=== PATIENT | male | born 1990 | race African-American/Black ===

== ENCOUNTER 2020-05-14 14:35 | Emergency (ER) | payer SELFPAY ==
[~2020-05-14] VITALS: Ht 180.3 cm; Wt 70.0 kg
[2020-05-14 15:07] LABS: BASO % 1 % (0-3); EOS # 0.1 x10^3/uL (0.0-0.7); EOS % 3 % (0-3); HEMATOCRIT 40.5 % (39.0-53.0); HEMOGLOBIN 13.8 g/dL (13.0-17.5); LYMPH # 1.6 x10^3/uL (1.0-4.8); LYMPH % 38 % (24-48); MEAN CORPUSCULAR HEMOGLOBIN 31 pg (25-35); MEAN CORPUSCULAR HGB CONC 34 g/dL (31-37); MEAN CORPUSCULAR VOLUME 91 fL (79-100); MONO # 0.5 x10^3/uL (0.0-1.1); MONO % 11 % (0-9); NEUT % 47 % (31-73); PLATELET COUNT 256 x10^3/uL (140-400); RED BLOOD COUNT 4.45 x10^6/uL (4.30-5.70); RED CELL DISTRIBUTION WIDTH 13.7 % (11.5-14.5); WHITE BLOOD COUNT 4.2 x10^3/uL (4.0-11.0)
--- NOTE | 2020-05-14 15:07 | PHYS DOC ---
Past Medical History Past Medical History: No Pertinent History Past Surgical History: No Surgical History Smoking Status: Current Every Day Smoker Alcohol Use: Rarely General Adult EDM: Chief Complaint: MULTIPLE COMPLAINTS HPI: HPI: Patient is a 29 year old male who presents with was exposed to cover on May 01 and got tested and was negative. He states just about 4 days ago he was exposed again. He states 2 days ago he began having fever, cough, lack of appetite. He states his temperature this morning was 102. He states he took Tylenol. He is currently afebrile in the ED. He states that he has some chest pain only with cough not with breathing. Patient denies shortness of breath, nausea, vomiting, diarrhea, numbness or tingling, headache, dizziness, syncope, focal weakness. States he has a lack of appetite. He denies any past medical history. He states he is a smoker. He takes no medications daily. Denies any pain at this time. Review of Systems: Review of Systems: Constitutional: +fever or chills. [] Eyes: Denies change in visual acuity. [] HENT: Denies nasal congestion. +sore throat. [] Respiratory: + cough or denies shortness of breath. [] Cardiovascular: +coughing chest pain or denies edema. [] GI: + Lack of appetite, Denies abdominal pain, nausea, vomiting, bloody stools or diarrhea. [] : Denies dysuria. [] Musculoskeletal: Denies back pain or joint pain. [] Integument: Denies rash. [] Neurologic: Denies headache, focal weakness or sensory changes. [] Endocrine: Denies polyuria or polydipsia. [] Lymphatic: Denies swollen glands. [] Psychiatric: Denies depression or anxiety. [] Heart Score: Risk Factors: Risk Factors: DM, Current or recent (<one month) smoker, HTN, HLP, family history of CAD, obesity. Risk Scores: Score 0 - 3: 2.5% MACE over next 6 weeks - Discharge Home Score 4 - 6: 20.3% MACE over next 6 weeks - Admit for Clinical Observation Score 7 - 10: 72.7% MACE over next 6 weeks - Early Invasive Strategies Allergies: Allergies: Allergies Coded Allergies Type Severity Reaction Last Updated Verified No Known Drug Allergies 05/14/20 No Physical Exam: PE: Constitutional: Well developed, well nourished, no acute distress, non-toxic appearance. [] HENT: Normocephalic, atraumatic, bilateral external ears normal, oropharynx moist, no oral exudates, nose normal. [] Eyes: PERRLA, EOMI, conjunctiva normal, no discharge. [] Neck: Normal range of motion, no tenderness, supple, no stridor. [] Cardiovascular:Heart rate regular rhythm, no murmur [] Lungs & Thorax: Bilateral breath sounds clear to auscultation [] Abdomen: Bowel sounds normal, soft, no tenderness, no masses, no pulsatile masses. [] Skin: Warm, dry, no erythema, no rash. [] Back: No tenderness, no CVA tenderness. [] Extremities: No tenderness, no cyanosis, no clubbing, ROM intact, no edema. [] Neurologic: Alert and oriented X 3, normal motor function, normal sensory function, no focal deficits noted. [] Psychologic: Affect normal, judgement normal, mood normal. [] Normal Physical Exam Current Patient Data: Vital Signs: Vital Signs Date Time Temp Pulse Resp B/P (MAP) Pulse Ox O2 Delivery O2 Flow Rate FiO2 05/14/20 14:45 98.3 69 18 134/85 (101) 100 Room Air 98.3 EKG: EKG: [] Radiology/Procedures: Radiology/Procedures: [] Impression: [facility] [address] [place] [address] IMAGING REPORT Signed PATIENT: NIDHI EARLY ACCOUNT: [id number] : 1990 LOCATION: ER AGE: 29 SEX: M EXAM STATUS: PRE ER ORD. PHYSICIAN: KENNEY CARTER APRN REASON: cough, covid exposure PROCEDURE: PORTABLE CHEST 1V Exam performed: One view chest. Indication: Reason: cough, covid exposure / Spl. Instructions: / History: Date of Service: 05/14/2020 2:48 PM Comparison: None available. Single AP upright portable view chest findings: Cardiomediastinal silhouette is within limits of normal. No acute infiltrates, effusion or pneumothorax is detected. The bony structures are normal. Impression: No acute cardiopulmonary process is detected. Electronically signed by: Rosetta France MD (05/14/2020 3:19 PM) [facility] DICTATED and SIGNED BY: ROSETTA FRANCE MD DATE: 05/14/20 1519 Course & Med Decision Making: Course & Med Decision Making Pertinent Labs and Imaging studies reviewed. (See chart for details) COVID-19 CRITERIA: The patient was evaluated during the global COVID-19 pandemic, and that diagnosis was suspected/considered upon their initial presentation. Their evaluation, treatment and testing was consistent with current guidelines for patients who present with complaints or symptoms that may be related to COVID-19. See HPI. Alert and oriented x4. Ambulatory with a steady gait. Speaks in full clear sentences. Lungs are clear to auscultation all lobes. Vital signs within normal limits. Chest x-ray shows no acute findings. Patient is tested for COVID in the ED. Vital signs remained stable. Blood work is stable. Patient is discharged home. [] Dragon Disclaimer: Dragon Disclaimer: This electronic medical record was generated, in whole or in part, using a voice recognition dictation system. COVID-19 Patient Risks: Age 65 or older: No Sign of co-morbidity: No Exp to person + for COVID: No Exp to PUI: Yes Travel from affected area: No Lower respiratory symptoms: Yes Fever: Yes Other: No PPE Use: Full PPE with N95 mask or PAPR: Yes Departure Departure Impression: Primary Impression: Person under investigation for COVID-19 Additional Impressions: Cough Fever Qualified Codes: R50.84 - Febrile nonhemolytic transfusion reaction Disposition: 01 HOME, SELF-CARE Condition: STABLE Patient Instructions: Cough, Adult, Fever, Adult Additional Instructions: Quarantine for the next couple of weeks. Covid test to come back in the next 48 hours. Drink plenty of fluids. Take Tylenol or ibuprofen to help with your pain or fever. You have been tested for or diagnosed with COVID-19. It is an infection caused by a new type of coronavirus. COVID-19 will cause cold-like or mild flu symptoms in most. It can cause more severe symptoms like problems breathing in some. There is no treatment for COVID-19. The body will clear the infection over time. Self-care will help to ease discomfort. Steps to Take: Self-Care Rest as needed. Healthy habits may help you feel better. Steps include: Choose healthy foods including fruits and vegetables. Drink water throughout the day. Get plenty of sleep each night. If you smoke, try to quit. It may ease breathing. Avoid alcohol. Keep Others Healthy The virus can spread to others. Droplets are released every time you sneeze or cough. The droplets can get into the mouth, nose, or eyes of people near you and lead to infection. To lower the chances of spreading COVID-19 to others: Stay at home until your doctor has said it is safe to leave. If you tested positive this will mean staying isolated until both of the following are true: At least 7 days have passed since the start of illness. You are free of fever for at least 72 hours without the use of medicine. During this time: - Avoid public areas, events, or transportation. Do not return to work or school until your doctor has said it is safe to do so. - Call ahead if you need to go to a medical center. Let them know you may have COVID-19. It will help them guide you where to go. They may also ask you to wear a facemask when you come to the office. - If you call for emergency medical services, let them know you may have COVID- 19. While at home: - Try to avoid close contact with others. Stay about 6 feet away. - If possible, spend most of your time in a separate room from others. - Use a face mask if you will be in close contact with others such as sharing a room or vehicle. - Have someone wipe down common surfaces in the home. Use household political advisor every day on areas like doorknobs, counters, or sinks. - Cough or sneeze into a tissue. Throw the tissue away right after use. If a tissue is not available, cough or sneeze into your elbow. - Wash your hands often. Wash them after sneezing or coughing. Use soap and water and wash for at least 20 seconds. Alcohol based hand apron cleaner can be used if soap and water is not available. - Do not prepare food for others. Avoid sharing personal items like forks, spoons, or toothbrushes. - Avoid close contact with pets while you are sick. There is no evidence of the virus passing to pets. This is a safety step until more is known about this virus. Isolation can be frustrating. Social interaction can help. Keep in touch with friends and family through phone and tech options. You can still interact with others in your home, just keep a safe distance of about 6 feet. Follow-up: Your doctors office will check in with you to see if there are any changes in your health. You may be asked to keep track of symptoms to share with them. They will also let you know when you are clear to be in public again. Problems to Look Out For: Contact your doctor if your recovery is not going as you expect. Get emergency care if you have problems such as: - Trouble breathing - Nonstop chest pain or pressure - Changes in awareness, confusion, or problems waking - Lips or face have bluish color - Worsening of symptoms If you think you have an emergency, call for emergency medical services right away. As taken from [facility] Albuterol Sulfate (PROAIR HFA INHALER) 8.5 Gm Hfa.aer.ad 1 PUFF INH PRN Q6HRS PRN for SHORTNESS OF BREATH, #1 INHALER 0 Refills Prov: KENNEY CARTER APRN 05/14/20 Methylprednisolone (MEDROL) 4 Mg Tab.ds.pk 1 PKG PO UD, #1 PKG Prov: KENNEY CARTER APRN 05/14/20 Justicifation of Admission Dx: Justifications for Admission: Justification of Admission Dx: N/A KENNEY CARTER APRN May 14, 2020 15:07
[2020-05-14 15:15] LABS: CALCIUM 8.8 mg/dL (8.5-10.1); GFR 87.7; POTASSIUM 4.4 mmol/L (3.5-5.1)
[2020-05-14 15:21] LABS: ALBUMIN 3.7 g/dL (3.4-5.0); ALBUMIN/GLOBULIN RATIO 1.3 (1.0-1.7); TOTAL BILIRUBIN 0.3 mg/dL (0.2-1.0); TOTAL PROTEIN 6.6 g/dL (6.4-8.2)
--- NOTE | 2020-05-14 15:22 | RAD ---
Exam performed: One view chest. Indication: Reason: cough, covid exposure / Spl. Instructions: / History: Date of Service: 05/14/2020 2:48 PM Comparison: None available. Single AP upright portable view chest findings: Cardiomediastinal silhouette is within limits of normal. No acute infiltrates, effusion or pneumothorax is detected. The bony structures are normal. Impression: No acute cardiopulmonary process is detected. Electronically signed by: Rosetta France MD (05/14/2020 3:19 PM) [facility]
[2020-05-14] MEDS ORDERED: ALBU2.5V8 INH (15:37)
[2020-05-14] MEDS ORDERED: METH4TAB2 PO (15:37)
[2020-05-14 15:42] LABS: BILIRUBIN,URINE NEGATIVE (NEG); CLARITY,URINE CLEAR; COLOR,URINE YELLOW; NITRITE,URINE NEGATIVE (NEG); PH,URINE 6.5 (<5.0-8.0); PROTEIN,URINE NEGATIVE (NEG-TRACE)
[2020-05-14 15:51] LABS: BACTERIA,URINE 0 /HPF (0-FEW); RBC,URINE 0 /HPF (0-2); SQUAMOUS EPITHELIAL CELL,UR FEW /LPF
[2020-05-14 16:22] VITALS: BP 118/79
--- NOTE | 2020-05-16 15:45 | NUR ---
IP: Informed pt of negative COVID test. Pt verbalized understanding.
== END 2020-05-14 16:44 | disposition home or self-care (01) ==
LOC: ER 14:35
DX: R50.9 Fever, unspecified (principal); Z20.828 Contact with and (suspected) exposure to other viral communicable diseases; R05 Cough; R50.84 Febrile nonhemolytic transfusion reaction; R63.0 Anorexia; F17.200 Nicotine dependence, unspecified, uncomplicated
CPT/HCPCS: 36415; 71045; 80053; 81001; 85025; 87086; 99284; U0003

== ENCOUNTER 2020-06-27 14:01 | Emergency (ER) | payer SELFPAY ==
[~2020-06-27] VITALS: Ht 180.3 cm; Wt 67.3 kg
[~2020-06-27 14:01] MED LIST: ALBU2.5V8 INH; METH4TAB2 PO
[2020-06-27 15:15] VITALS: BP 119/79
[2020-06-27] MEDS ORDERED: NAPROXEN 500 MG TABLET PO STA (15:45)
--- NOTE | 2020-06-27 15:55 | RAD ---
ANKLE LEFT 3V 06/27/2020 2:02 PM INDICATION: Left ankle pain for 3 days COMPARISON: None available. TECHNIQUE: 3 views the left ankle are provided. FINDINGS/ IMPRESSION: There is no acute fracture or dislocation. Joint spaces are maintained. Bone mineralization is within normal limits. Regional soft tissues are within normal limits. There is no soft tissue gas or osseous erosion. No radiopaque foreign body. Electronically signed by: Elba Sahu MD (06/27/2020 3:52 PM) [id number]
[2020-06-27] MEDS ORDERED: HYDROcodone/APAP 5/325MG 1 TAB TABLET PO ONE (16:00)
[2020-06-27] MEDS ORDERED: predniSONE 10 MG TABLET PO ONE (16:00)
--- NOTE | 2020-06-27 17:13 | PHYS DOC ---
Past Medical History Past Medical History: No Pertinent History (CYNTHIA PIERCE APRN) Past Surgical History: No Surgical History (CYNTHIA PIERCE APRN) Smoking Status: Current Some Day Smoker Alcohol Use: None (CYNTHIA PIERCE APRN) General Adult EDM: Chief Complaint: ANKLE PROBLEM HPI: HPI: Patient is a 30 year old male patient presented to the ED today with 10 out of 10 left ankle pain specifically at his Achilles tendon that began 3 days ago. Patient denies any known injury. States the pain is worse on range of motion. Describes the pain as a burning sensation., Denies anything specifically relieving the pain. (CYNTHIA PIERCE APRN) Review of Systems: Review of Systems: Constitutional: Denies fever or chills. [] Musculoskeletal: Reports left ankle pain Integument: Denies rash. [] Neurologic: Denies headache, focal weakness or sensory changes. [] Psychiatric: Denies depression or anxiety. [] (CYNTHIA PIERCE APRN) Heart Score: Risk Factors: Risk Factors: DM, Current or recent (<one month) smoker, HTN, HLP, family history of CAD, obesity. Risk Scores: Score 0 - 3: 2.5% MACE over next 6 weeks - Discharge Home Score 4 - 6: 20.3% MACE over next 6 weeks - Admit for Clinical Observation Score 7 - 10: 72.7% MACE over next 6 weeks - Early Invasive Strategies (CYNTHIA PIERCE APRN) Current Medications: Current Medications Medications (Trade) Dose Ordered Sig/Cory Start Time Stop Time Status Last Admin Dose Admin Acetaminophen/ Hydrocodone Bitart (Lortab 5/325) 1 tab 1X ONCE 06/27/20 16:00 06/27/20 16:01 DC 06/27/20 16:01 1 TAB Naproxen (Naprosyn) 500 mg 1X STAT 06/27/20 15:45 06/27/20 15:49 DC 06/27/20 16:01 500 MG Prednisone (Prednisone) 50 mg 1X ONCE 06/27/20 16:00 06/27/20 16:01 DC 06/27/20 16:01 50 MG (CYNTHIA PIERCE APRN) Allergies: Allergies: Allergies Coded Allergies Type Severity Reaction Last Updated Verified No Known Drug Allergies 05/14/20 No (CYNTHIA PIERCE APRN) Physical Exam: PE: Constitutional: Well developed, well nourished, no acute distress, non-toxic appearance. [] Skin: Warm, dry, no erythema, no rash. [] Back: No tenderness, no CVA tenderness. [] Extremities: Left ankle with no obvious deformity. No redness on the Achilles tendon. Tenderness on palpation of the Achilles tendon on the left leg. Full range of motion to the left lower extremity specifically left ankle including flexion and extension. Negative Serrano sign. +2 left pedal pulse. Cap refill less than 2 seconds to left toes. Neurologic: Alert and oriented X 3, normal motor function, normal sensory function, no focal deficits noted. [] Psychologic: Affect normal, judgement normal, mood normal. [] (CYNTHIA PIERCE APRN) Current Patient Data: Vital Signs: Vital Signs Date Time Temp Pulse Resp B/P (MAP) Pulse Ox O2 Delivery O2 Flow Rate FiO2 06/27/20 15:15 98.0 65 14 119/79 (92) 100 Room Air 98.0 (CYNTHIA PIERCE APRN) EKG: EKG: [] (CYNTHIA PIERCE APRN) Radiology/Procedures: Radiology/Procedures: []PROCEDURE: ANKLE LEFT 3V ANKLE LEFT 3V 06/27/2020 2:02 PM INDICATION: Left ankle pain for 3 days COMPARISON: None available. TECHNIQUE: 3 views the left ankle are provided. FINDINGS/ IMPRESSION: There is no acute fracture or dislocation. Joint spaces are maintained. Bone mineralization is within normal limits. Regional soft tissues are within normal limits. There is no soft tissue gas or osseous erosion. No radiopaque foreign body. Electronically signed by: Christin Reyes MD (06/27/2020 3:52 PM) [id number] DICTATED and SIGNED BY: CHRISTIN REYES MD DATE: 06/27/20 1552 (CYNTHIA PIERCE APRN) Course & Med Decision Making: Course & Med Decision Making Pertinent Labs and Imaging studies reviewed. (See chart for details) This is a 30-year-old male patient presenting to the ED today complaining of left Achilles tendon pain for 3 days. Left ankle x-rays are negative for any acute findings. Patient was placed in a posterior leg splint and instructed to follow-up with an orthopedic doctor in a week, neurovascular exam done post splinting is normal. Ice elevation encouraged. Discharged with Medrol Dosepak and naproxen (CYNTHIA PIERCE APRN) Dragon Disclaimer: Dragon Disclaimer: This electronic medical record was generated, in whole or in part, using a voice recognition dictation system. (CYNTHIA PIERCE APRN) Departure Departure Impression: Primary Impression: Achilles tendinitis, left leg Disposition: 01 DC HOME SELF CARE/HOMELESS Condition: STABLE Referrals: NO PCP (PCP) RADHIKA HERRON MD follow up in 1 week Patient Instructions: Achilles Tendinitis Additional Instructions: You were seen for pain around the Achilles tendon, contact the provided orthopedic doctor in follow-up in a week. Take the prescribed medications as ordered. Try to ice and elevate the affected extremity. Scripts Naproxen (NAPROXEN) 500 Mg Tablet 1 TAB PO BID for pain, #20 TAB 0 Refills Prov: CYNTHIA PIERCE APRN 06/27/20 Methylprednisolone (MEDROL) 4 Mg Tab.ds.pk 1 PKG PO UD, #1 PKG Prov: CYNTHIA PIERCE APRN 06/27/20 Attending Signature Attending Signature I have reviewed the PA/EMAIL MARKETING PROCESSOR's note and plan of care. I was available for consultation as needed during the patient's visit in the emergency department. I agree with the clinical impression, plan, and disposition. (MÓNICA COELLO DO) CYNTHIA PIERCE APRN Jun 27, 2020 17:13 MÓNICA COELLO DO Jun 27, 2020 19:49
[2020-06-27] MEDS ORDERED: NAPR-514 PO (17:20)
[2020-06-27] MEDS ORDERED: METH4TAB2 PO (17:20)
== END 2020-06-27 18:15 | disposition home or self-care (01) ==
LOC: ER 14:01
DX: M76.62 Achilles tendinitis, left leg (principal); R20.8 Other disturbances of skin sensation; Z87.891 Personal history of nicotine dependence
CPT/HCPCS: 29515; 73610; 99284; J7512

== ENCOUNTER 2020-07-02 16:59 | Emergency (ER) | payer SELFPAY ==
[~2020-07-02] VITALS: Ht 180.3 cm; Wt 68.0 kg
[~2020-07-02 16:59] MED LIST changes: +NAPR-514 PO
[2020-07-02 17:03] VITALS: BP 146/86
--- NOTE | 2020-07-02 17:54 | PHYS DOC ---
Past Medical History Past Medical History: Other Additional Past Medical Histor: achilles tendonitis Past Surgical History: No Surgical History Smoking Status: Current Every Day Smoker Alcohol Use: Occasionally General Adult EDM: Chief Complaint: OTHER COMPLAINTS HPI: HPI: Patient is a 30 year old male who presents to the ED today requesting a note to return to work. Patient stated he was seen in the ED on June 27 for Achilles tendinitis. He states his ankle is healed up and does not have any pain right now. Review of Systems: Review of Systems: Constitutional: Denies fever or chills. [] Musculoskeletal: Request for work note for ankle pain Integument: Denies rash. [] Neurologic: Denies headache, focal weakness or sensory changes. [] Psychiatric: Denies depression or anxiety. [] Heart Score: Risk Factors: Risk Factors: DM, Current or recent (<one month) smoker, HTN, HLP, family history of CAD, obesity. Risk Scores: Score 0 - 3: 2.5% MACE over next 6 weeks - Discharge Home Score 4 - 6: 20.3% MACE over next 6 weeks - Admit for Clinical Observation Score 7 - 10: 72.7% MACE over next 6 weeks - Early Invasive Strategies Allergies: Allergies: Allergies Coded Allergies Type Severity Reaction Last Updated Verified No Known Drug Allergies 05/14/20 No Physical Exam: PE: Constitutional: Well developed, well nourished, no acute distress, non-toxic appearance. [] Skin: Warm, dry, no erythema, no rash. [] Back: No tenderness, no CVA tenderness. [] Extremities: left ankle with no obvious deformity. Full range of motion. +2 left pedal pulse. Neurologic: Alert and oriented X 3, normal motor function, normal sensory function, no focal deficits noted. [] Psychologic: Affect normal, judgement normal, mood normal. [] Current Patient Data: Vital Signs: Vital Signs Date Time Temp Pulse Resp B/P (MAP) Pulse Ox O2 Delivery O2 Flow Rate FiO2 07/02/20 17:03 98.4 70 16 146/86 (106) 97 Room Air 98.4 EKG: EKG: [] Radiology/Procedures: Radiology/Procedures: [] Course & Med Decision Making: Course & Med Decision Making Pertinent Labs and Imaging studies reviewed. (See chart for details) This is a 30-year-old male patient presenting to the ED today requesting a note to return to work. Patient was diagnosed with Achilles tendinitis on June 27, 2020, he states this feels okay and would like to return to work. Note provided. Melo Disclaimer: Melo Disclaimer: This electronic medical record was generated, in whole or in part, using a voice recognition dictation system. Departure Departure Impression: Primary Impression: Left ankle pain Qualified Codes: M25.572 - Pain in left ankle and joints of left foot Disposition: 01 DC HOME SELF CARE/HOMELESS Condition: STABLE Referrals: NO PCP (PCP) follow up with your doctor as needed Patient Instructions: Ankle Pain Additional Instructions: You were evaluated in the emergency room. Please return to work today. Follow- up with your own doctor as needed. CYNTHIA PIERCE SENIOR LIVING ADVISOR Jul 02, 2020 17:54
== END 2020-07-02 18:00 | disposition home or self-care (01) ==
LOC: ER 16:59
DX: M25.572 Pain in left ankle and joints of left foot (principal); F17.200 Nicotine dependence, unspecified, uncomplicated
CPT/HCPCS: 99281

== ENCOUNTER 2021-02-20 16:29 | Emergency (ER) | payer SELFPAY ==
[~2021-02-20] VITALS: Ht 180.3 cm; Wt 70.4 kg
[2021-02-20 16:48] VITALS: BP 120/63
[2021-02-20 16:53] LABS: BILIRUBIN,URINE NEGATIVE (NEG); CLARITY,URINE CLEAR; COLOR,URINE YELLOW; NITRITE,URINE NEGATIVE (NEG); PH,URINE 7.5 (<5.0-8.0); PROTEIN,URINE NEGATIVE (NEG-TRACE)
[2021-02-20] MEDS ORDERED: DOXY100T PO (16:57)
--- NOTE | 2021-02-20 16:57 | PHYS DOC ---
Past Medical History Past Medical History: Other Additional Past Medical Histor: achilles tendonitis (ЮЛИЯCYNTHIA Hoffmann ARCH SUPPORT TECHNICIAN) Past Surgical History: No Surgical History (CYNTHIA PIERCE ARCH SUPPORT TECHNICIAN) Smoking Status: Current Every Day Smoker Alcohol Use: Occasionally (ЮЛИЯCYNTHIA Hoffmann APRN) General Adult EDM: Chief Complaint: SEXUALLY TRANSMITTED DISEASE HPI: HPI: Patient is a 30 year old male who presents to the ED today stating the significant female partner called him and informed him she tested positive for chlamydia. Patient denies any symptoms. (ЮЛИЯCYNTHIA Hoffmann ARCH SUPPORT TECHNICIAN) Review of Systems: Review of Systems: Constitutional: Denies fever or chills. [] : Reports STD concern. Denies dysuria. [] Musculoskeletal: Denies back pain or joint pain. [] Integument: Denies rash. [] Neurologic: Denies headache, focal weakness or sensory changes. [] Psychiatric: Denies depression or anxiety. [] (CYNTHIA PIERCE ARCH SUPPORT TECHNICIAN) Heart Score: C/O Chest Pain: N/A Risk Factors: Risk Factors: DM, Current or recent (<one month) smoker, HTN, HLP, family history of CAD, obesity. Risk Scores: Score 0 - 3: 2.5% MACE over next 6 weeks - Discharge Home Score 4 - 6: 20.3% MACE over next 6 weeks - Admit for Clinical Observation Score 7 - 10: 72.7% MACE over next 6 weeks - Early Invasive Strategies (CYNTHIA PIERCE APRN) Allergies: Allergies: Allergies Coded Allergies Type Severity Reaction Last Updated Verified No Known Drug Allergies 05/14/20 No (KIMIJACECYNTHIA Hoffmann APRN) Physical Exam: PE: Constitutional: Well developed, well nourished, no acute distress, non-toxic appearance. [] Skin: Warm, dry, no erythema, no rash. [] Back: No tenderness, no CVA tenderness. [] Extremities: No tenderness, no cyanosis, no clubbing, ROM intact, no edema. [] Neurologic: Alert and oriented X 3, normal motor function, normal sensory function, no focal deficits noted. [] Psychologic: Affect normal, judgement normal, mood normal. [] (CYNTHIA PIERCE ARCH SUPPORT TECHNICIAN) EKG: EKG: [] (CYNTHIA PIERCE ARCH SUPPORT TECHNICIAN) Radiology/Procedures: Radiology/Procedures: [] (CYNTHIA PIERCE APRN) Course & Med Decision Making: Course & Med Decision Making Pertinent Labs and Imaging studies reviewed. (See chart for details) This is a 30-year-old male patient presenting to the ED today with STD concern. Part of treatment was given in the ED and patient was sent home on doxycycline, STD education provided (CYNTHIA PIERCE APRN) Course & Med Decision Making I oversaw on the above date of service of this patient. This patient was evaluated, examined, treated, and dispositioned from the emergency department by the mid-level practitioner. Although I was working at the time and available for consultation, no assistance was requested and I did not see or immediately direct the care of this patient. I reviewed note and agree to findings, plan of care, and disposition as stated. Electronically signed, Eber Howell DO (EBER HOWELL DO) Melo Disclaimer: Melo Disclaimer: This electronic medical record was generated, in whole or in part, using a voice recognition dictation system. (CYNTHIA PIERCE APRN) Departure Departure Impression: Primary Impression: Concern about STD in female without diagnosis Disposition: HOME / SELF CARE / HOMELESS Condition: STABLE Referrals: NO PCP (PCP) Follow-up with the health department as needed Patient Instructions: Sexually Transmitted Disease Additional Instructions: You were treated for sexually transmitted diseases. Use protection at all times. Ensure you complete the prescription for doxycycline that was sent to your pharmacy. Please do not have intercourse for 2 weeks. Scripts Doxycycline Hyclate (DOXYCYCLINE HYCLATE) 100 Mg Tablet 1 TAB PO BID, #14 TAB Prov: CYNTHIA PIERCE APRN 02/20/21 CYNTHIA PIERCE APRN Feb 20, 2021 16:57 EBER HOWELL DO Feb 21, 2021 05:57
[2021-02-20] MEDS ORDERED: cefTRIAXone IM 500 MG VIAL. IM ONE (17:00)
[2021-02-20] MEDS ORDERED: metroNIDAZOLE 500 MG TABLET PO ONE (17:00)
[2021-02-20] MEDS ORDERED: DOXYCYCLINE HYCLATE 100 MG TABLET PO ONE (17:00)
[2021-02-20 17:07] LABS: BACTERIA,URINE 0 /HPF (0-FEW); RBC,URINE RARE /HPF (0-2); WBC,URINE RARE /HPF (0-4)
== END 2021-02-20 17:37 | disposition home or self-care (01) ==
LOC: ER 16:29
DX: Z20.2 Contact with and (suspected) exposure to infections with a predominantly sexual mode of transmission (principal); F17.200 Nicotine dependence, unspecified, uncomplicated
CPT/HCPCS: 81001; 87491; 87591; 96372; 99283; J0696